=== PATIENT | male | born 1985 | race Caucasian/White ===

== ENCOUNTER 2023-03-21 13:19 | Emergency (ER) | payer MEDICAID ==
[~2023-03-21] VITALS: Ht 172.7 cm; Wt 81.8 kg
[2023-03-21 13:38] LABS: COVID AG,FIA SOURCE NASAL SWAB
[2023-03-21 14:17] LABS: INFLUENZA TYPE A NEGATIVE FOR TYPE A (NEGATIVE); INFLUENZA TYPE B NEGATIVE FOR TYPE B (NEGATIVE)
[2023-03-21] MEDS ORDERED: OXYMETAZOLINE HCL 0.05% 15 ML NASAL SPRAY NASAL ONE (14:45)
[2023-03-21] MEDS ORDERED: PSEU-191 PO (14:47)
[2023-03-21 15:29] VITALS: BP 142/88
== END 2023-03-21 15:42 | disposition home or self-care (01) ==
LOC: EMS 13:21
DX: J32.9 Chronic sinusitis, unspecified (principal); F17.210 Nicotine dependence, cigarettes, uncomplicated; F12.90 Cannabis use, unspecified, uncomplicated
CPT/HCPCS: 87804; 99283